=== PATIENT | male | born 1990 | race African-American/Black ===

== ENCOUNTER 2016-07-12 07:11 | Emergency (ER) | payer OTHER ==
[~2016-07-12] VITALS: Ht 170.2 cm; Wt 63.5 kg
--- NOTE | ~2016-07-12 | EKG ---
[place] [address] [facility] [place] [address] ELECTROCARDIOGRAM REPORT Name: ALEKSEY SAMAYOA Room #: DEP MIGUE Craig#: [id number] Admission: 07/12/16 Attend Phys: Discharge: 07/12/16 Date of : 89 Report #: [id number] THIS REPORT FOR: //name// [facility] ED Test Date: 2016-07-12 Test Time: 07:24:07 Pat Name: ANABAPTISMFLASH SAMAYOA Department: Room: Gender: [employer]: : 1990 Requested By: Joyce Hollingsworth Order Number: [id number] MD: Km Chawla Measurements Intervals [place] Rate: 79 P: 32 NH: 166 QRS: 75 QRSD: 96 T: 2 QT: 369 QTc: 424 Interpretive Statements Sinus rhythm Normal tracing No previous ECG available for comparison Electronically Signed On 07-12-2016 9:06:29 CDT by Km Chawla [email or web address] <ELECTRONICALLY SIGNED> By: Km Chawla MD, [facility] 07/12/16 0906 0724 0724 Km Chawla MD, FACC /EPI
[2016-07-12] MEDS ORDERED: DEPAKOTE250 MG PO (07:34)
[2016-07-12 07:49] LABS: ABSOLUTE NEUTROPHILS 1.6 thou/uL (1.4-8.2); BASOPHILS 1.2 % (0.0-2.0); EOSINOPHILS 6.4 % (0.0-3.0); HEMATOCRIT 40.6 % (42.0-52.0); HEMOGLOBIN 13.4 gm/dL (14.0-18.0); LYMPHOCYTES 40.5 % (24.0-44.0); MCHC 33.1 g/dL (28.0-37.0); MCV 90.7 fL (80.0-100.0); MONOCYTES 7.4 % (1.0-8.0); PLATELET COUNT 151 thou/uL (150-400); POLYS 44.5 % (36.0-66.0); RBC 4.48 mil/uL (4.50-6.00); RDW 13.3 % (10.5-14.5); WBC 3.6 thou/uL (4.0-11.0)
[2016-07-12 07:50] LABS: MANUAL DIFF NO
[2016-07-12 07:59] LABS: CALCIUM 8.4 mg/dL (8.5-10.1)
[2016-07-12 08:44] VITALS: BP 94/60
== END 2016-07-12 08:45 | disposition home or self-care (01) ==
LOC: ER 07:11
PROVIDERS: Emergency Medicine
DX: G40.89 Other seizures (principal); S00.01XA Abrasion of scalp, initial encounter; Z91.14 Patient's other noncompliance with medication regimen; Z88.8 Allergy status to other drugs, medicaments and biological substances; W18.09XA Striking against other object with subsequent fall, initial encounter; Y93.89 Activity, other specified; Y92.89 Other specified places as the place of occurrence of the external cause; Y99.8 Other external cause status

== ENCOUNTER 2021-04-24 19:15 | Emergency (ER) | payer OTHER ==
[~2021-04-24] VITALS: Ht 167.6 cm; Wt 81.7 kg
[~2021-04-24 19:15] MED LIST: DEPAKOTE250 MG PO
[2021-04-24 19:16] VITALS: BP 117/73
== END 2021-04-24 19:50 | disposition home or self-care (01) ==
LOC: ER 19:15
DX: G40.909 Epilepsy, unspecified, not intractable, without status epilepticus (principal); F12.90 Cannabis use, unspecified, uncomplicated; Z79.899 Other long term (current) drug therapy; Z88.8 Allergy status to other drugs, medicaments and biological substances